=== PATIENT | female | born 1955 | race Two or more races ===

== ENCOUNTER 2020-12-24 15:42 | Emergency (ER) | payer OTHER ==
[~2020-12-24] VITALS: Ht 152.4 cm; Wt 79.8 kg
[2020-12-24] MEDS ORDERED: JANUVIA100 MG (16:21)
[2020-12-24] MEDS ORDERED: COZAAR100 MG (16:21)
[2020-12-24] MEDS ORDERED: GLIMEPIRIDE1 M1 (16:21)
[2020-12-24] MEDS ORDERED: VERELAN120 MG (16:21)
[2020-12-24] MEDS ORDERED: BENTYL10 MG/1 ML (16:22)
[2020-12-24] MEDS ORDERED: ALPRAZOLAM ODT0.5 MG (16:22)
[2020-12-24] MEDS ORDERED: FLAGYL500MG (16:22)
[2020-12-24] MEDS ORDERED: ZETIA10 MG (16:23)
[2020-12-24] MEDS ORDERED: SIMVASTATIN40 MG (16:23)
== END 2020-12-24 20:38 | disposition home or self-care (01) ==
LOC: ER 15:42
DX: K57.30 Diverticulosis of large intestine without perforation or abscess without bleeding (principal); N20.0 Calculus of kidney; R10.12 Left upper quadrant pain; R10.32 Left lower quadrant pain

== ENCOUNTER 2021-05-08 06:52 | Day surgery (SDC) | payer OTHER ==
[~2021-05-08 06:52] MED LIST: ALPRAZOLAM ODT0.5 MG; BENTYL10 MG/1 ML; COZAAR100 MG; FLAGYL500MG; GLIMEPIRIDE1 M1; JANUVIA100 MG; SIMVASTATIN40 MG; VERELAN120 MG; ZETIA10 MG
[2021-05-08] MEDS ORDERED: TYLENOL325 MG PO (10:52)
== END 2021-05-08 16:10 | disposition home or self-care (01) ==
LOC: CIR.AMB 06:52
PROVIDERS: ATTEND Obstetrics & Gynecology Gynecology
DX: N84.0 Polyp of corpus uteri (principal); Z20.822 Contact with and (suspected) exposure to COVID-19

== ENCOUNTER 2022-07-19 11:00 | Inpatient (IN) | payer OTHER ==
[~2022-07-19] VITALS: Ht 149.9 cm; Wt 79.8 kg
[~2022-07-19 11:00] MED LIST changes: +TYLENOL325 MG PO
[2022-07-24] MEDS ORDERED: ZIOPTAN 0.00151 EACH (08:46)
[2022-07-24] MEDS ORDERED: CETIRIZINE HCL10 MG (08:47)
[2022-07-24] MEDS ORDERED: IPRATROPIUM BRO15 ML (08:47)
[2022-07-24] MEDS ORDERED: FLONASE16 GM (08:47)
[2022-07-24] MEDS ORDERED: AZELASTINE137 MCG/0. (08:47)
[2022-07-24] MEDS ORDERED: AZELASTIN-FLUTI23 GM (08:47)
[2022-07-24] MEDS ORDERED: OMEPRAZOLE20 MG (08:47)
== END 2022-07-26 12:48 | disposition home or self-care (01) | DRG 330 ==
LOC: EDSTATUS 11:00 → ADM 11:00 → SURH 07-24 06:30 → O/R 07-24 06:30 → SURG 07-24 11:00 → SURH 07-24 14:39 → SURG 07-24 15:30 → SURH 07-26 12:48
PROVIDERS: ADMIT Colon & Rectal Surgery; ATTEND Colon & Rectal Surgery
PROC: 0DBP4ZZ Excision of Rectum, Percutaneous Endoscopic Approach (ICD-10-PCS; 2022-07-24)
PROC: 0DJD8ZZ Inspection of Lower Intestinal Tract, Via Natural or Artificial Opening Endoscopic (ICD-10-PCS; 2022-07-24)
PROC: 0DTN4ZZ Resection of Sigmoid Colon, Percutaneous Endoscopic Approach (ICD-10-PCS; principal; 2022-07-24 15:30)
DX: K57.32 Diverticulitis of large intestine without perforation or abscess without bleeding (principal); K92.1 Melena

== ENCOUNTER 2022-07-27 15:12 | Inpatient (IN) | payer OTHER ==
[~2022-07-27] VITALS: Ht 149.9 cm; Wt 74.8 kg
[~2022-07-27 15:12] MED LIST changes: +AZELASTIN-FLUTI23 GM; +AZELASTINE137 MCG/0.; +CETIRIZINE HCL10 MG; +FLONASE16 GM; +IPRATROPIUM BRO15 ML; +OMEPRAZOLE20 MG; +ZIOPTAN 0.00151 EACH
--- NOTE | 2022-07-27 16:42 | NUR ---
REFIERE GEORGE SIDO OPERADA DE LOS INTESTINOS POR EL DR. WHIPPLE EN 07/24/22 SAMUEL DE GERARDO RAJ Y DESDE HOY COMENZO A PRESENTAR VARIOS EPISODIOS DE DIARREAS AMARILLO CALABAZA, CON MOLESTIA EN AREA OPERADA. PENDIENTE EVALUACION MEDICA.
--- NOTE | 2022-07-27 18:40 | NUR ---
PTE FEMENINA EVALUADA POR . SE ORIENTA SOBRE ORDENES DE TX REFIERE COMPRENDER. SE COLECTAN MUESTRAS DE LABORATORIOS, BAJO MEDIDAS ASEPTICAS. SE ENTREGA CONTRASTE ORAL Y SE ORIENTA. SE NOTIFICA A RADIOLOGIA PARA ESTUDIO.
--- NOTE | 2022-07-27 22:46 | NUR ---
SE ORIENTA SOBRE EL TX. SE ADMINISTRA MEDICAMENTO KANCHAN ORDEN MEDICA.
--- NOTE | 2022-07-27 23:53 | NUR ---
PTE ALERTA Y ORIENTADA X3 EN CATHY CON BARANDAS ELEVADAS. SE CANALIZA EN BRAZO MAXX AREA TAVIA DE EDEMA Y DE ENROJECIMIENTO. SE LE ADMINISTRA MEDICAMENTO KANCHAN ORDEN MEDICA Y SE EDUCA SOBRE TRATAMIENTO MEDICO.
--- NOTE | 2022-07-28 07:48 | NUR ---
SE RECIBE PTE FEMENIAN DE 67 YRS ALERTA CONCIENETE Y TRANQUILA EN CATHY CON BARABDAS ELEVADA.PTE AL MOMENTO TAVIA DE DOLOR SE MANTIENE EN ESPERA DE MEDICO EN ESPERA. SE MANTIENE BAJO OBSERVACION POR CAMBISOS.
[2022-07-30] MEDS ORDERED: ZIOPTAN 0.00151 EACH (09:08)
[2022-07-30] MEDS ORDERED: AZELASTIN-FLUTI23 GM (09:08)
[2022-07-30] MEDS ORDERED: OMEPRAZOLE20 MG (09:08)
== END 2022-07-31 19:38 | disposition home or self-care (01) | DRG 392 ==
LOC: ER 15:12 → SURG 07-28 12:22 → SURH 07-28 13:54
PROVIDERS: ADMIT Colon & Rectal Surgery; ATTEND Colon & Rectal Surgery
PROC: BW21YZZ Computerized Tomography (CT Scan) of Abdomen and Pelvis using Other Contrast (ICD-10-PCS; 2022-07-27)
PROC: 02HV33Z Insertion of Infusion Device into Superior Vena Cava, Percutaneous Approach (ICD-10-PCS; principal; 2022-07-29)
DX: K52.9 Noninfective gastroenteritis and colitis, unspecified (principal); K57.32 Diverticulitis of large intestine without perforation or abscess without bleeding; E66.9 Obesity, unspecified; Z68.30 Body mass index [BMI] 30.0-30.9, adult; Z90.49 Acquired absence of other specified parts of digestive tract; E11.21 Type 2 diabetes mellitus with diabetic nephropathy; Z79.4 Long term (current) use of insulin; I10 Essential (primary) hypertension; I49.9 Cardiac arrhythmia, unspecified; Z20.822 Contact with and (suspected) exposure to COVID-19

== ENCOUNTER 2025-05-31 08:12 | Outpatient (CLI) | payer OTHER | END 2025-05-31 08:13 | disposition home or self-care (01) | LOC: NUCLEAR 08:12 | PROVIDERS: ATTEND Internal Medicine | DX: R07.89 Other chest pain (principal) | CPT/HCPCS: 78452; 93017; A9500 ==